=== PATIENT | female | born 1960 | race Caucasian/White ===

== ENCOUNTER → 2017-06-06 | Outpatient (CLI) | payer MEDICARE, OTHER ==
[~2017-06-06] MED LIST: BENADRYL25 MG PO; CYCLOBENZAPRINE10 MG PO; LEXAPRO20 MG PO; Lexapro PO; MAGNESIUM CITR100 MG PO; MOTRIN800 MG PO; PERCOCET 7.51 TABLET PO; Percocet 5/325,Endoc PO; ROXICET 5-3251 EACH PO; TYLENOL EXTRA500 MG PO; [UNRECOGNIZED DRUG - OTHER] PO
== END | disposition home or self-care (01) ==
LOC: CDC 09:02
DX: G56.00 Carpal tunnel syndrome, unspecified upper limb (principal)
CPT/HCPCS: 93000